=== PATIENT | female | born 1950 | race Caucasian/White ===

== ENCOUNTER 2019-12-18 14:18 | Outpatient (CLI) | payer BC, SELFPAY ==
--- NOTE | 2019-12-18 14:30 | XRR_ITS ---
PROCEDURE INFORMATION: Exam: XR Left Shoulder Exam date and time: 12/18/2019 2:31 PM Age: 69 years old Clinical indication: Pain; Shoulder; Left; Additional info: Pain in left shoulder TECHNIQUE: Imaging protocol: XR Left shoulder. Views: 2 or more views. COMPARISON: CR Shoulder 2+ views LEFT* [id number] 07/26/2018 1:13 PM FINDINGS: Bones/joints: Negative for acute bony abnormality Soft tissues: Normal. No interval changes are seen compared to prior examination XR/XR shoulder LT min 2V* [id number] IMPRESSION: No acute findings.
== END 2019-12-18 14:19 | disposition home or self-care (01) ==
LOC: RAD 14:24
PROVIDERS: Family Provider Family Medicine; PCP Family Medicine; Visit Provider Family Medicine
DX: M25.512 Pain in left shoulder (principal)
CPT/HCPCS: 73030

== ENCOUNTER 2020-01-09 10:56 | Outpatient (RCR) | payer BC, SELFPAY | END 2020-01-25 23:59 | disposition home or self-care (01) | LOC: SPT 10:56 | PROVIDERS: Family Provider Family Medicine; PCP Family Medicine; Referring Provider Family Medicine; Visit Provider Family Medicine | DX: M25.512 Pain in left shoulder (principal) | CPT/HCPCS: 97110; 97162 ==

== ENCOUNTER 2020-01-26 06:00 | Outpatient (RCR) | payer BC, SELFPAY | END 2020-02-25 23:59 | disposition home or self-care (01) | LOC: SPT 06:00 | PROVIDERS: Family Provider Family Medicine; PCP Family Medicine; Referring Provider Family Medicine; Visit Provider Family Medicine | DX: M25.512 Pain in left shoulder (principal) | CPT/HCPCS: 97110 ==

== ENCOUNTER 2021-04-07 10:54 | Outpatient (CLI) | payer BC, SELFPAY ==
--- NOTE | 2021-04-07 11:04 | MM_ITS ---
WS: [id number] BILATERAL SCREENING DIGITAL MAMMOGRAM WITH CAD HISTORY: SCREENING COMPARISON: 05/17/2018 and 01/08/2013 Bilateral CC and MLO views submitted. Computer aided detection analyzed. Breast composition: There are scattered areas of fibroglandular density. No suspicious masses, microc alcifications or architectural distortion. MM/[place] [id number] IMPRESSION: BI-RADS: 1-Negative FOLLOW UP: 1 Year Follow-up
== END 2021-04-07 10:55 | disposition home or self-care (01) ==
LOC: RADSHAW 10:59
PROVIDERS: PCP Family Medicine; Visit Provider Family Medicine
DX: Z12.31 Encounter for screening mammogram for malignant neoplasm of breast (principal)
CPT/HCPCS: 77067

== ENCOUNTER 2022-04-12 12:19 | Outpatient (CLI) | payer BC, SELFPAY ==
--- NOTE | 2022-04-12 12:25 | CT_ITS ---
WS: [id number] CT HEAD TECHNIQUE: Noncontrast CT of the head obtained from the skullbase to the vertex. CLINICAL INFORMATION: HEADACHE COMPARISON: CT 8 30,018 DLP: 1047.[address] scans at [facility] use at least one of these dose optimization techniques: automated e xposure control; mA and/or kV adjustment per patient size (includes targeted exams where dose is matc hed to clinical indication); or iterative reconstruction. FINDINGS: No evidence of intracranial hemorrhage or mass effect. Ventricular system and basal cisterns are avery nt. Mild small vessel changes with moderate parenchymal volume loss. No extra-axial fluid collections . No evidence of mass or mass effect. Intracranial vascular calcification. Paranasal sinuses and mastoid air cells are well aerated. .Normal visualized soft tissues. CT/CT head wo con* [id number] IMPRESSION: 1. No evidence of intracranial hemorrhage or mass effect. 2. Mild small vessel changes with moderate parenchymal volume loss. 3. No acute intracranial findings.
== END 2022-04-12 12:20 | disposition home or self-care (01) ==
PROVIDERS: PCP Family Medicine; Visit Provider Family Medicine
DX: R51.9 Headache, unspecified (principal)
CPT/HCPCS: 70450

== ENCOUNTER 2022-04-14 13:12 | Outpatient (CLI) | payer BC, SELFPAY ==
--- NOTE | 2022-04-14 13:49 | USCV_ITS ---
Ayaka Walker Age: 71 Gender: F : 1950 Exam Date: 04/14/2022 14:01 Ordering Phys: Annabel Fang MD Technologist: Exam [place] [facility] [place]: tia vs cva Risk Factors: Previous Vascular Surgery: Right Brachial BP: / Left Brachial BP: / Right Left Velocity (cm/s) Spectral Plaque Velocity (cm/s) Spectral Plaque Syst/Diast Broadening Syst/Diast Broadening 51.80/ 9.90 Prox CCA 53.00 / 10.30 73.90/ 18.70 Mid CCA 48.70 / 9.40 56.40/ 14.50 Hetro Distal CCA 54.70 / 14.50 Hetro 59.80/ 12.00 Prox ICA 82.80 / 19.70 68.40/ 15.40 Mid ICA 93.30 / 19.70 103.40/22.20 Distal ICA 88.10 / 21.00 94.00 ECA 120.90 1.40 ICA/CCA 1.71 Antegrade Vertebral Antegrade 70.90/ 13.70 cm/s 59.20/ 11.80 cm/s Tri Subclavian Tri 74.30 115.7 0 CONCLUSIONS Right ICA stenosis <50%. Mild atheromatous plaque right carotid bulb/ICA. Left ICA stenosis <50%. Mild atheromatous plaque left carotid bulb/ICA. Normal antegrade Doppler flow noted in the right vertebral artery. Normal antegrade Doppler flow noted in the left vertebral artery. Adam Bruno MD (Electronically Signed) Final Date: 14 Apr 2022 17:42 S
== END 2022-04-14 13:13 | disposition home or self-care (01) ==
PROVIDERS: PCP Family Medicine; Visit Provider Family Medicine
DX: I65.23 Occlusion and stenosis of bilateral carotid arteries (principal); R51.9 Headache, unspecified
CPT/HCPCS: 93880

== ENCOUNTER 2022-09-22 15:09 | Outpatient (CLI) | payer BC, SELFPAY ==
--- NOTE | 2022-09-22 | XR_ITS ---
WS: [id number] Exam: XR shoulder LT min 2V* [id number] Date/Time of Exam: 09/22/2022 3:15 PM Reason For Exam: LEFT SHOULDER PAIN No acute fracture or dislocation. Moderate degenerative change of the glenohumeral joint. The AC join t is intact. Normal soft tissues. XR/XR shoulder LT min 2V* [id number] IMPRESSION: 1. Moderate degenerative change of the glenohumeral joint. 2. No fracture or other significant finding.
== END 2022-09-22 15:10 | disposition home or self-care (01) ==
LOC: RAD 15:10
PROVIDERS: PCP Family Medicine; Visit Provider Family Medicine
DX: M25.512 Pain in left shoulder (principal); M19.012 Primary osteoarthritis, left shoulder
CPT/HCPCS: 73030

== ENCOUNTER 2022-10-19 08:29 | Outpatient (CLI) | payer BC, SELFPAY ==
--- NOTE | 2022-10-19 08:38 | NM_ITS ---
WS: [id number] NUCLEAR MEDICINE PARATHYROID STUDY INDICATION: Endocrine disorder TECHNIQUE: 19.2 mCi technetium 99m sestamibi with initial and 2 hour delayed imaging. Suprasternal ma rker and chin markers utilized. Anterior planar and oblique imaging. FINDINGS: Normal symmetric thyroid uptake on the initial imaging. Normal washout on the delayed imagi ng. No suspicious areas to suggest parathyroid adenoma. No other suspicious findings. NM/NM parathyroid [id number] IMPRESSION: 1. No evidence of parathyroid adenoma.
== END 2022-10-19 08:30 | disposition home or self-care (01) ==
LOC: RAD 08:30
PROVIDERS: PCP Family Medicine; Visit Provider Family Medicine
DX: E34.9 Endocrine disorder, unspecified (principal)
CPT/HCPCS: 78070; A9500

== ENCOUNTER 2022-11-03 14:44 | Outpatient (CLI) | payer BC, SELFPAY ==
--- NOTE | 2022-11-03 14:55 | XR_ITS ---
WS: [id number] DEXA (DUAL ENERGY X-RAY ABSORPTIOMETRY) Bone mineral density was performed using a [employer] machine. HISTORY: POST MENOPAUSAL COMPARISON: None available. Lumbar spine BMD (L1-L4): 1.060 g/cm2 T score: -1.0 Z score: 0.1 Total hip BMD: Left: 0.822 g/cm2. T score: -1.5 Z score: -0.4 Right: 0.862 g/cm2. T score: -1.2 Z score: -0.1 10 year probability of a major osteoporotic fracture is 10.6%. XR/XR DEXA axial skeleton* [id number] IMPRESSION: OSTEOPENIA based upon the WHO classification for females.
== END 2022-11-03 14:45 | disposition home or self-care (01) ==
PROVIDERS: PCP Family Medicine; Visit Provider Family Medicine
DX: Z78.0 Asymptomatic menopausal state (principal); M85.80 Other specified disorders of bone density and structure, unspecified site
CPT/HCPCS: 77080

== ENCOUNTER 2023-02-13 14:43 | Outpatient (CLI) | payer BC, SELFPAY ==
--- NOTE | 2023-02-13 14:53 | MM_ITS ---
WS: [id number] BILATERAL 3D TOMOSYNTHESIS DIGITAL SCREENING MAMMOGRAPHY WITH CAD CLINICAL INFORMATION: SCREENING HISTORY: Screening mammogram. LEFT breast tenderness COMPARISON: 2020 TECHNIQUE: Bilateral CC and MLO views. FINDINGS: Scattered fibroglandular densities bilaterally. No suspicious focal mass, asymmetry, calcifications, or architectural distortion. No evidence of malignancy. A few incidental punctate calcifications. Vas cular calcification. MM/[place] [id number] IMPRESSION: BI-RADS: 2-Benign FOLLOW UP: 1 Year Follow-up Recommend return to annual screening mammography.
== END 2023-02-13 14:44 | disposition home or self-care (01) ==
LOC: RAD 14:45
PROVIDERS: PCP Family Medicine; Visit Provider Family Medicine
DX: Z12.31 Encounter for screening mammogram for malignant neoplasm of breast (principal)
CPT/HCPCS: 77063; 77067

== ENCOUNTER → 2023-06-06 15:52 | Outpatient (BNVA) | payer BC, SELFPAY | PROVIDERS: PCP Family Medicine; Visit Provider Internal Medicine Cardiovascular Disease | DX: R07.9 Chest pain, unspecified (principal) | CPT/HCPCS: 93005 ==

== ENCOUNTER 2023-08-01 12:52 | Outpatient (CLI) | payer BC, SELFPAY ==
--- NOTE | 2023-08-01 13:12 | XRR_ITS ---
PROCEDURE INFORMATION: Exam: XR Lumbosacral Spine Exam date and time: 08/01/2023 1:32 PM Age: 73 years old Clinical indication: Injury or trauma; Fall; Blunt trauma (contusions or hematomas); Injury date: 2 weeks ago; Additional info: Dorsalgia TECHNIQUE: Imaging protocol: Radiologic exam of the lumbosacral spine. Views: 2 or 3 views. COMPARISON: No relevant prior studies available. FINDINGS: Bones/joints: Trace anterolisthesis of L5 on S1. Trace retrolisthesis of L3 on L4. Vertebral body height is maintained. No acute fracture. There is marked disc narrowing and endplate sclerosis L1-L2. There is [id number] lumbar facet spondylosis, greatest at L4-L5 and L5-S1. The visible portion of the sacrum is intact. Visible portions of the pelvis and hips are intact. No acute fracture. Visible portions of the ribs are intact. Soft tissues: Unremarkable. Gastrointestinal tract: There is gas and stool distention of the ascending colon. XR/XR lumbar spine 2-3V* [id number] IMPRESSION: 1. No acute fracture. 2. Lumbar disc and facet degeneration.
--- NOTE | 2023-08-01 13:12 | XRR_ITS ---
PROCEDURE INFORMATION: Exam: XR Pelvis Exam date and time: 08/01/2023 1:32 PM Age: 73 years old Clinical indication: Injury or trauma; Fall; Blunt trauma (contusions or hematomas); Bilateral; Pelvic region; Injury date: 2 weeks ago; Additional info: Back pain/fall from one level to another TECHNIQUE: Imaging protocol: Radiologic exam of the pelvis. Views: 1 or 2 view. COMPARISON: No relevant prior studies available. FINDINGS: Bones/joints: Femoroacetabular alignment is normal bilaterally. There is mild bilateral central joint space narrowing. The proximal femora are intact. The bony pelvis is intact. Sacrum and SI joints are unremarkable. Distal sacrum is partially obscured by overlying bowel gas. There is moderate degenerative disease in the lower lumbar spine. Soft tissues: Visible soft tissues are unremarkable. XR/XR pelvis 1-2V* [id number] IMPRESSION: No acute fracture.
== END 2023-08-01 12:53 | disposition home or self-care (01) ==
PROVIDERS: PCP Family Medicine; Visit Provider Family Medicine
DX: M54.9 Dorsalgia, unspecified (principal); W17.89XA Other fall from one level to another, initial encounter; M47.816 Spondylosis without myelopathy or radiculopathy, lumbar region
CPT/HCPCS: 72100; 72170

== ENCOUNTER 2023-09-18 08:51 | Day surgery (SDC) | payer BC, SELFPAY ==
[2023-09-18] VITALS (11 sets, daily range): BP systolic 109–124; BP diastolic 68–81; PULSE 60–73; RESP 9–20; TEMP 36.6–36.8; O2SAT 92–97; BMI 30.8
--- NOTE | 2023-09-18 09:33 | ANES.PREANE2 ---
Pre-Anesthetic Assessment Height/Weight: Height 1.6 m Weight 78.925 kg Temp Pulse Resp BP Pulse Ox O2 Del Method 97.9 F 60 16 109/72 94 Room Air 09/18/23 09:11 09/18/23 09:11 09/18/23 09:11 09/18/23 09:11 09/18/23 09:11 09/18/23 09:11 Operation Date: 09/18/23 13:40 Proposed Procedures p [id number] incision right flank subcutaneous mass R22.9(Not Applicable) - Natanael Silveira DO Familial anesthetic complications: none Was Beta Chip taken within 24 hours: N/A Was Clonidine taken within 24 hours: N/A Last intake: Intake Last Liquid Date 09/17/23 Last Liquid Time 17:00 Last Solid Date 09/17/23 Last Solid Time 20:30 CV/HEM Arrythmia Metabolic Hyperlipidemia and Morbid Obesity Neuropsych Anxiety Anesthetic Plan ASA status: 2 Anesthesia: Choice Medications/Allergies Home Medications Medication Instructions Recorded Confirmed Last Taken Type celecoxib 200 mg capsule 200 mg PO DAILY 12/05/20 09/15/23 09/17/23 History lovastatin 20 mg tablet 20 mg PO DAILY 12/05/20 09/15/23 09/17/23 History alprazolam 0.5 mg tablet 0.5 mg PO DAILY PRN Anxiety 06/06/23 09/18/23 09/17/23 History duloxetine 40 mg capsule,delayed 40 mg PO DAILY 06/06/23 09/15/23 09/17/23 History release Allergies Allergy/AdvReac Type Severity Reaction Status Date / Time No Known Allergies Allergy Verified 09/12/23 12:59 PFSH Anesthesia Surgical History (Updated 09/12/23 @ 13:26 by Natanael Silveira DO) Hx of arthroscopy of right knee x2 Hx of colonoscopy 2021 Hx of gastric bypass gastric sleeve 2016 Hx of hysterectomy Family History Mother Stroke Social History Smoking and tobacco/nicotine status: never used tobacco/nicotine Alcohol intake: never Substance/Drug Use: never Female Reproductive History Spontaneous abortions: No Data Anesthesia Cardiac Studies: Cardiac Event Monitor 06/06/23
[2023-09-18] MEDS: sodium chloride 0.9% 1,000 ML 30 ML IV (09:36)
--- NOTE | 2023-09-18 09:43 | W.PM.OPSUD ---
Surgery/Procedure H&P Update DATE OF PROCEDURE: September 18, 2023 DATE H&P PERFORMED: 09/12/23 H&P UPDATE INFORMATION: I have reviewed H&P completed within last 30 days, I have examined patient prior to procedure and No changes to prior documentation PLANNED PROCEDURE: Operation Date: 09/18/23 13:40 [place] [id number] incision right flank subcutaneous mass R22.9(Not Applicable) - Natanael Silveira, DO
[2023-09-18] MEDS: ceFAZolin 2,000 MG in sodium chloride 0.9% (plus) 50 ML 100 MG IV (10:34)
[2023-09-18] MEDS: lidocaine-epi 2% 20 mL INJ INJECTION (11:02)
--- NOTE | 2023-09-18 11:04 | PM.OP ---
Operative Report Date of procedure: September 18, 2023 Pre-op diagnosis: Subcutaneous mass right flank Post-op diagnosis: same Procedure done: Excision of subcutaneous mass right flank Implants: None Specimens removed/disposition: Subcutaneous mass right flank Surgeon: Natanael Silveira DO Anesthesia: General Estimated blood loss (mL): 5 Complications: None apparent Brief History: This very pleasant 73-year-old female with an enlarging and painful mass of her right flank. Excision was indicated. The risk and benefits were explained and documented. Procedure: The area was inspected prepped and draped in the usual sterile fashion. A timeout was performed. All present were in agreement. 2% lidocaine with epinephrine was used to anesthetize the area. A 10 blade scalpel was then used to make a 3.5 cm transverse incision on her right flank over the subcutaneous mass. Electrocautery was then used to dissect down through the fascia. A lobulated fatty mass was encountered. Alveolar tissue was lysed with electrocautery. The mass was removed in total. Mass measured 6 cm in greatest diameter. Hemostasis was noted. 3-0 Vicryl was used to approximate the dermis in a subcuticular interrupted fashion. Skin glue was used. Patient tolerated the procedure well.
--- NOTE | 2023-09-18 12:49 | ANE.PACU2 ---
Inpatient post-anesthesia follow up: Airway intact: Yes Vital signs: Temperature 97.9 F Pulse Rate 64 Respiratory Rate 14 Blood Pressure 112/72 Pulse Oximetry 94 Oxygen Delivery Me thod Room Air Oxygen Flow Rate Fraction of Inspir ed Oxygen Hydration adequate: Yes Nausea and vomiting: No Pain level: 2 Mental status: Baseline
--- NOTE | 2023-09-18 12:59 | SUR.PHASEII ---
incision site dry and intact.no bleeding.
== END 2023-09-18 12:45 | disposition home or self-care (01) ==
PROVIDERS: PCP Family Medicine; Visit Provider Surgery
PROC: (CPT 11406; principal; 2023-09-18 13:30)
DX: D17.1 Benign lipomatous neoplasm of skin and subcutaneous tissue of trunk (principal); E78.5 Hyperlipidemia, unspecified; E66.01 Morbid (severe) obesity due to excess calories; Z68.30 Body mass index [BMI] 30.0-30.9, adult
CPT/HCPCS: 11406; 12032; 88307; J0690; J1100; J2405; J2704; J3010; J3490; J7030

== ENCOUNTER 2024-06-26 07:23 | Day surgery (SDC) | payer BC, SELFPAY ==
[2024-06-26 07:43] VITALS: BMI 30.9
[2024-06-26 07:44] VITALS: BP 127/75; PULSE 69; RESP 18; TEMP 36.6; O2SAT 94
[2024-06-26] MEDS: sodium chloride 0.9% 1,000 ML 30 ML IV (07:51)
--- NOTE | 2024-06-26 08:01 | ANES.PREANE2 ---
Pre-Anesthetic Assessment Height/Weight: Height 1.6 m Weight 79.379 kg Temp Pulse Resp BP Pulse Ox O2 Del Method 97.8 F 69 18 127/75 94 Room Air 06/26/24 07:44 06/26/24 07:44 06/26/24 07:44 06/26/24 07:44 06/26/24 07:44 06/26/24 07:44 Preop Diagnosis: screening Operation Date: 06/26/24 08:30 Proposed Procedures p EGD Dilation W/ Balloon 80727, 95630, G0121, R13.10, Z12.11(Not Applicable) - Natanael Silveira DO s Colonoscopy(Not Applicable) - Natanael Silveira DO Familial anesthetic complications: none Was Beta Chip taken within 24 hours: N/A Was Clonidine taken within 24 hours: N/A Last intake: Intake Last Liquid Date 06/25/24 Last Liquid Time 22:30 Last Solid Date 06/24/24 Last Solid Time 18:00 Social No alcohol and No tobacco Exam alert, oriented x 3, clear to auscultation bilaterally and regular rate & rhythm Airway Submandibular: within normal limits Cervical ROM: within normal limits Mallampati: Class III Dentition: full History/ROS No significant history except as noted and No significant complaints Pulmonary None reported CV/HEM None reported None reported Hepatic None reported GI Hiatal Hernia difficulty swallowing Metabolic None reported Musc/skel None reported Neuropsych None reported Anesthetic Plan ASA status: 2 Anesthesia: MAC Risk of > 500 ml blood loss (7ml/kg in children): No Medications/Allergies Home Medications Medication Instructions Recorded Confirmed Last Taken Type celecoxib 200 mg capsule 200 mg PO DAILY 12/05/20 06/21/24 06/25/24 History lovastatin 20 mg tablet 20 mg PO DAILY 12/05/20 06/21/24 06/25/24 History alprazolam 0.5 mg tablet 0.5 mg PO DAILY PRN Anxiety 06/06/23 06/21/24 09/17/23 History duloxetine 40 mg capsule,delayed 40 mg PO DAILY 06/06/23 06/21/24 06/25/24 History release aspirin 81 mg tablet,delayed 81 mg PO DAILY 05/06/24 06/21/24 Unknown History release (Adult Aspirin Regimen) ondansetron 8 mg disintegrating 8 mg PO Q8H PRN nausea and 05/06/24 06/21/24 Unknown Rx tablet vomiting #20 tabs Allergies Allergy/AdvReac Type Severity Reaction Status Date / Time No Known Allergies Allergy Verified 06/21/24 10:46 Current Medications Generic Name Dose Route Start Last Admin Trade Name Evelia PRN Reason Stop Dose Admin Sodium Chloride 1,000 mls @ 30 mls/hr 06/26/24 07:45 06/26/24 07:51 Sodium Chloride 0.9% IV 06/27/24 07:44 30 mls/hr .Q24H KATELYN Administration PFSH Anesthesia Surgical History Hx of arthroscopy of right knee x2 Hx of hysterectomy Hx of gastric bypass gastric sleeve 2016 Hx of colonoscopy 2021 Family History Mother Stroke Social History Smoking and tobacco/nicotine status: never used tobacco/nicotine Alcohol intake: never Substance/Drug Use: never Female Reproductive History Spontaneous abortions: No Data Anesthesia Cardiac Studies: Cardiac Event Monitor 06/06/23
--- NOTE | 2024-06-26 08:41 | PM.HP ---
Providers/Chief Complaint Primary Care Provider: Annabel Fang MD Chief Complaint: R13.10, Z12.11 History of Present Illness Ayaka Walker is a 74 year old female Review of Systems General: Reports: 10 or more systems reviewed and unremarkable except in HPI and below Medications/Allergies Home Medications Medication Instructions Recorded Confirmed Last Taken Type celecoxib 200 mg capsule 200 mg PO DAILY 12/05/20 06/21/24 06/25/24 History lovastatin 20 mg tablet 20 mg PO DAILY 12/05/20 06/21/24 06/25/24 History alprazolam 0.5 mg tablet 0.5 mg PO DAILY PRN Anxiety 06/06/23 06/21/24 09/17/23 History duloxetine 40 mg capsule,delayed 40 mg PO DAILY 06/06/23 06/21/24 06/25/24 History release aspirin 81 mg tablet,delayed 81 mg PO DAILY 05/06/24 06/21/24 Unknown History release (Adult Aspirin Regimen) ondansetron 8 mg disintegrating 8 mg PO Q8H PRN nausea and 05/06/24 06/21/24 Unknown Rx tablet vomiting #20 tabs Allergies Allergy/AdvReac Type Severity Reaction Status Date / Time No Known Allergies Allergy Verified 06/21/24 10:46 PFSH Acute PFSH: Surgical History Hx of arthroscopy of right knee x2 Hx of hysterectomy Hx of gastric bypass gastric sleeve 2017 Hx of colonoscopy 2021 Family History Mother Stroke Social History Smoking and tobacco/nicotine status: never used tobacco/nicotine Alcohol intake: never Substance/Drug Use: never Female Reproductive History: Spontaneous abortions: No Vitals/I&O/Wt Last Vital Signs Temp 97.8 F 06/26/24 07:44 Pulse 69 06/26/24 07:44 Resp 18 06/26/24 07:44 BP 127/75 06/26/24 07:44 Pulse Ox 94 06/26/24 07:44 O2 Del Method Room Air 06/26/24 07:44 Weight last 48 hrs Weight 175 lb A&P Assessment and plan (1) Dysphagia: (2) Colon cancer screening: Plan EGD with possible balloon dilation Colonoscopy Attestations Medical Necessity Statement*: Home Coding Level of Care Code Acute Code for Chg Fwd Diagnoses Dysphagia R13.10 Colon cancer screening Z12.11
[2024-06-26] MEDS: EPINEPHrine 1 mg/mL INJ XX (09:01)
[2024-06-26 09:11] VITALS: BP 120/74; PULSE 67; RESP 12; TEMP 36.1; O2SAT 93
[2024-06-26 09:26] VITALS: BP 109/73; PULSE 68; RESP 18; O2SAT 95
--- NOTE | 2024-06-26 09:55 | ANE.PACU2 ---
Inpatient post-anesthesia follow up: Airway intact: Yes Vital signs: Temperature 97.0 F Pulse Rate 68 Respiratory Rate 18 Blood Pressure 109/73 Pulse Oximetry 95 Oxygen Delivery Me thod Room Air Oxygen Flow Rate 9 Fraction of Inspir ed Oxygen Hydration adequate: Yes Nausea and vomiting: No Pain level: 1 Mental status: Baseline
== END 2024-06-26 09:55 | disposition home or self-care (01) ==
PROVIDERS: PCP Family Medicine; Visit Provider Surgery
PROC: 0DJD8ZZ Inspection of Lower Intestinal Tract, Via Natural or Artificial Opening Endoscopic (ICD-10-PCS; CPT 45378; 2024-06-26 08:30)
DX: Z12.11 Encounter for screening for malignant neoplasm of colon (principal); R13.10 Dysphagia, unspecified; K29.50 Unspecified chronic gastritis without bleeding; D12.5 Benign neoplasm of sigmoid colon; Z98.84 Bariatric surgery status; K22.2 Esophageal obstruction; K44.9 Diaphragmatic hernia without obstruction or gangrene
CPT/HCPCS: 43239; 43249; 45385; 88305; J0171; J2704; J7030

== ENCOUNTER 2024-10-17 15:00 | Outpatient (CLI) | payer BC, SELFPAY ==
--- NOTE | 2024-10-17 15:05 | XR_ITS ---
WS: [id number] Exam: XR knee RT 4V [id number] Date/Time of Exam: 10/17/2024 3:08 PM Reason For Exam: PAIN IN R KNEE Comparison 12/17/2011. Tricompartmental degenerative change most severe involving the patellofemoral joint. No fracture. No significant joint effusion. Normal soft tissues. XR/XR knee RT 4V [id number] IMPRESSION: 1. Degenerative changes particularly involving the patellofemoral joint with kristine ne-on-bone articulation. This is most severe involving the lateral compartment. Kellgren-Ismael grade 2.
== END 2024-10-17 15:01 | disposition home or self-care (01) ==
LOC: RAD 15:01
PROVIDERS: PCP Family Medicine; Visit Provider Family Medicine
DX: M17.11 Unilateral primary osteoarthritis, right knee (principal)
CPT/HCPCS: 73564

== ENCOUNTER → 2024-11-06 09:18 | Outpatient (BNVA) | payer BC, SELFPAY | PROVIDERS: PCP Family Medicine; Visit Provider Specialist | DX: M25.561 Pain in right knee (principal); M17.11 Unilateral primary osteoarthritis, right knee; S80.01XA Contusion of right knee, initial encounter; X58.XXXA Exposure to other specified factors, initial encounter; M54.50 Low back pain, unspecified; M79.604 Pain in right leg; M25.461 Effusion, right knee; M25.569 Pain in unspecified knee | CPT/HCPCS: 73560; 73565; 80503; 87070; 87075; 87205; 89050 ==

== ENCOUNTER 2025-01-13 12:21 | Outpatient (CLI) | payer BC, SELFPAY ==
--- NOTE | 2025-01-13 12:30 | CT_ITS ---
WS: [id number] CT RIGHT KNEE, NONCONTRAST [facility] TECHNIQUE: Noncontrast CT of the RIGHT knee to include the RIGHT hip and ankle. CLINICAL INFORMATION: M17.11 - Unilateral primary osteoarthritis, right knee COMPARISON: None. DLP: 942.[address] scans at [facility] use at least one of these dose optimization techniques: automated exposure control; mA and/or kV adjustment per patient size (includes targeted exams where dose is matched to clinical indication); or iterative reconstruction. FINDINGS: Advanced tricompartment arthritis RIGHT knee worse in the medial joint compartment. Hypertrophic patella. Severe joint space narrowing at the patellofemoral articulation worse along the lateral patella facet. Hypertrophic changes along the joint line. Moderate suprapatellar effusion. Sigmoid diverticulosis. Moderate arthritis sacroiliac joints. CT/CT knee RT [facility] [id number] IMPRESSION: Images obtained for preoperative purposes.
== END 2025-01-13 12:22 | disposition home or self-care (01) ==
LOC: RAD 12:21
PROVIDERS: PCP Family Medicine; Visit Provider Specialist
DX: M17.11 Unilateral primary osteoarthritis, right knee (principal); R93.6 Abnormal findings on diagnostic imaging of limbs; K57.30 Diverticulosis of large intestine without perforation or abscess without bleeding; R93.89 Abnormal findings on diagnostic imaging of other specified body structures
CPT/HCPCS: 73700

== ENCOUNTER → 2025-01-29 10:00 | Outpatient (BNVA) | payer BC, SELFPAY | PROVIDERS: PCP Family Medicine; Visit Provider Family Medicine | DX: Z01.818 Encounter for other preprocedural examination (principal); R94.31 Abnormal electrocardiogram [ECG] [EKG] | CPT/HCPCS: 80053; 81003; 85025; 93005 ==

== ENCOUNTER 2025-02-06 06:43 | Day surgery (SDC) | payer BC, SELFPAY ==
[2025-02-06] VITALS (20 sets, daily range): BP systolic 88–145; BP diastolic 47–78; PULSE 58–87; RESP 14–20; TEMP 36.2–37.1; O2SAT 91–98; BMI 30.8; BMI 32.2
--- NOTE | 2025-02-06 07:06 | P.HPUD_ITS ---
Surgery/Procedure H&P Update DATE OF PROCEDURE: February 06, 2025 DATE H&P PERFORMED: 01/29/25 H&P UPDATE INFORMATION: I have reviewed H&P completed within last 30 days, I have examined patient prior to procedure, No changes to prior documentation and [place] [facility] [place] date indicated PLANNED PROCEDURE: Operation Date: 02/06/25 08:30 Proposed Procedures p Yevgeniy Robot Total Knee Arthroplasty(Right) - Syeda Gallardo MD Related Problem List Diagnoses (1) Primary osteoarthritis of right knee:
--- NOTE | 2025-02-06 08:02 | ANES.PREANE2 ---
Pre-Anesthetic Assessment Height/Weight: Height 1.6 m Weight 78.925 kg Temp Pulse Resp BP Pulse Ox O2 Del Method 98.7 F 58 L 16 145/78 98 Room Air 02/06/25 07:41 02/06/25 07:41 02/06/25 07:41 02/06/25 07:41 02/06/25 07:41 02/06/25 07:41 Operation Date: 02/06/25 08:30 Proposed Procedures p Yevgeniy Robot Total Knee Arthroplasty(Right) - Syeda Gallardo MD Familial anesthetic complications: Traumatizing experience with a spinal anesthetic in 1988 - was difficult to perform requiring multiple sticks, ultimately failed, but lasted until the following morning Was Beta Chip taken within 24 hours: N/A Was Clonidine taken within 24 hours: N/A Last intake: > 8 hrs Social No alcohol and No tobacco Exam alert, oriented x 3, clear to auscultation bilaterally and regular rate & rhythm Airway Mallampati: Class I Dentition: full CV/HEM Arrythmia GI Gastroesophageal Reflux Disease Metabolic Hyperlipidemia Anesthetic Plan ASA status: 2 Anesthesia: General Risk of > 500 ml blood loss (7ml/kg in children): No Other Pertinent Information Extensive discussion with patient and spouse about spinal vs general anesthesia, after discussion patient elected to proceed with general anesthestic Medications/Allergies Home Medications ?Medication ?Instructions ?Recorded ?Confirmed ?Last Taken ?Type lovastatin 20 mg tablet 20 mg PO DAILY 12/05/20 02/05/25 02/05/25 History alprazolam 0.5 mg tablet 0.5 mg PO DAILY PRN Anxiety 06/06/23 02/05/25 09/17/23 History duloxetine 40 mg capsule,delayed 40 mg PO DAILY 06/06/23 02/05/25 06/25/24 History release aspirin 81 mg tablet,delayed 81 mg PO DAILY 05/06/24 02/05/25 01/06/25 History release (Adult Aspirin Regimen) pantoprazole 40 mg tablet,delayed 40 mg PO ONCE 30 days #30 tabs 07/18/24 02/05/25 01/31/25 Rx release Allergies Allergy/AdvReac Type Severity Reaction Status Date / Time No Known Allergies Allergy Verified 02/06/25 07:10 [facility] Anesthesia Surgical History Hx of arthroscopy of right knee x2 Hx of hysterectomy Hx of gastric bypass gastric sleeve 2017 Hx of colonoscopy 2021 Family History Mother Stroke Social History Smoking and tobacco/nicotine status: never used tobacco/nicotine Alcohol intake: never Substance/Drug Use: never Female Reproductive History Spontaneous abortions: No Data Anesthesia Cardiac Studies: Cardiac Event Monitor 06/06/23
[2025-02-06] MEDS: acetaminophen 1,000 MG/100 ML PIGGYBACK 400 MG IV ×3 (08:07→23:40)
[2025-02-06] MEDS: gabapentin 300 mg Capsule PO (08:07)
[2025-02-06] MEDS: CELEcoxib 200 mg Capsule 400 MG PO (08:08)
[2025-02-06] MEDS: ceFAZolin 2,000 mg SDV 2000 MG IVP ×2 (08:43→17:37)
[2025-02-06] MEDS: tranexamic acid 1,000 mg/10mL SDV 1000 MG IV (09:20)
[2025-02-06] MEDS: ceFAZolin 1,000 mg SDV 2000 MG IRRIGATION (09:38)
[2025-02-06] MEDS: VANCOMYCIN ADD-Vantage 1,000 MG VIAL 1000 MG XX (09:40)
[2025-02-06] MEDS: BUPivacaine 0.5% INJ 10 mL 20 ML INJECTION (09:45)
[2025-02-06] MEDS: BUPivacaine liposome 13.3 mg/mL SDV 20 mL 266 MG INJECTION (09:45)
--- NOTE | 2025-02-06 11:58 | XRR_ITS ---
PROCEDURE INFORMATION: Exam: XR Right Knee Exam date and time: 02/06/2025 10:58 AM Age: 74 years old Clinical indication: Other: Post op RT knee; Prior surgery; Surgery date: Post-operative (0-2 days); Surgery type: Post op right knee; Additional info: S/P right tka in pacu TECHNIQUE: Imaging protocol: Radiologic exam of the right knee. Views: 3 views. COMPARISON: CT knee RT [facility] [id number] 01/13/2025 12:33 PM FINDINGS: Bones/joints: Total knee replacement. Anatomic alignment. Bone and metal are intact. Intra-articular and periarticular gas. Soft tissues: Normal. XR/XR knee RT 3V* [id number] IMPRESSION: Normal following replacement.
--- NOTE | 2025-02-06 12:07 | PM.OP ---
Operative Report Date of procedure: February 06, 2025 Pre-op diagnosis: Primary osteoarthritis right knee Post-op diagnosis: Primary osteoarthritis right knee Post-op findings: Severe degenerative osteoarthritic change right knee with osteophyte formation varus deformity Procedure done: Right total knee arthroplasty with Yevgeniy guidance Implants: The [place] total knee system with a size 3 triathlon beaded cruciate retaining femur right, a triathlon titanium tibial component size 2 beaded, a triathlon X3 tibial bearing CS insert size 2 X 9 mm and a beaded triathlon titanium asymmetric patella size 29 x 9 mm Specimens removed/disposition: Bone, disposed of Pathology: None Surgeon: Syeda Gallardo MD Word Processing Supervisor: Veronica Zamorano, nurse practitioner who services were required for retraction, exposure, closure, and completion of the surgical procedure Anesthesia: General (Intubated, ASA 2) Estimated blood loss (mL): 630 Tourniquet time (min): 0 (Not utilized) IV fluids (mL): 1,700 Urine output (mL): 100 Complications: None Findings: Severe degenerative osteoarthritis with large osteophytes and complete denudement of cartilage Condition: stable Disposition: PACU Brief History: This 74-year-old female presented to the clinic with right knee pain. The patient underwent nonsurgical intervention such as aspiration and injection of the knee. The patient also had anti-inflammatory medications. The patient was having increasing limitations in her activities of daily living and decreasing benefit from none operative interventions. For this reason, she wished to proceed with operative intervention. Risks and complications were discussed with her in the office. Questions were answered and consents were signed. Patient was seen in the preop holding area and given further opportunity for questions. Procedure: The patient was brought to the operating theater, and after undergoing adequate general anesthesia intubated, ASA 2, the right lower extremity was prepped with DuraPrep and draped in usual fashion following placement of a tourniquet high on the leg. The leg was then draped free. Tourniquet was placed on the leg but was not elevated throughout the surgical procedure. Following exposure of the site of surgery, a surgical pause was performed. At the time of the surgical pause, we confirmed the site and side of surgery. Additionally, we confirmed the appropriate and timely administration of preoperative antibiotics, Ancef 2 g. Tranexamic acid 1 g was given preoperatively and will be given again on the floor for 1 dose postoperatively. The availability of equipment was confirmed, and the patient's identity was verbalized as well. Following the surgical pause, an incision was made centering over the patella continuing proximally and distally as necessary to allow access to the knee joint. Dissection continued through skin and soft tissues using a scalpel. Hemostasis was obtained using electrocautery. The skin incision was followed by a median parapatellar arthrotomy. The leg was extended and the patella was able to be displaced laterally. Appropriate arrays and markers were placed in appropriate position for use of the Yevgeniy. Preoperative planning had been accomplished and was discussed in detail with the [facility] digital sales representative. Intraoperative mapping of the femur and tibia was accomplished after the arrays were placed. Once we had accomplished the Yevgeniy mapping, we began the appropriate resections for placement of the prosthesis. The plan was for a cruciate retaining right total knee arthroplasty. Once appropriate mapping had been accomplished retraction was established using manual retraction by the [facility] leg positioner and retractors. The knee was evaluated. There was eburnation particularly of the medial femoral condyle.? There were large osteophytes circumferentially about the trochlear groove as well as the patella and medial tibial plateau.? After balancing the knee within the Yevgeniy program, the appropriate bone resection was accomplished. Initial resection was accomplished on the tibia followed by appropriate resections on the femur. We had performed a medial release at the beginning of the procedure to allow for placement of the array. Proximal tibia was evaluated and it was felt that appropriate size for the tibia was a size 2, and appropriate femoral size was a size 3. A trial reduction was accomplished after osteophytes had been removed, the medial and lateral meniscus were excised, and bone cuts had been accomplished as above. We had removed the anterior cruciate ligament at the beginning of the case and preserved the posterior cruciate ligament. Trial reduction was accomplished with a size 3 femoral cruciate retaining component and a size 2 tibia with a CS tibial bearing insert which was 9 mm in thickness. Initial trial reduction demonstrated that the knee had excellent stability, full extension, and full flexion. The trial components were removed after the femur had been drilled. Prior to removal of the tibial tray which had been pinned in position with appropriate rotation as determined by the Yevgeniy plan, we broached the tibia. Subsequently, the 4 drill holes were made for the prosthetic component. All trial components had been removed, and the wound was irrigated. Plans were made for insertion of the prosthetic components. Prior to this, the patella was manually prepared. After resection of the articular surface freehand due to the thinness of the patella, it was measured and measured a 29 mm patella. We resected minimal patella, and patellar height was restored with the patellar component. Once again, the wound was irrigated. The Tritanium tibia was impacted into position.? The beaded femur was then impacted into position in a cementless fashion. The CS tibial insert was placed prior to placement of the femoral component. The patella was pressed into position with a patellar clamp.? Exparel was injected prior to placement of the components. The knee was then copiously irrigated with betadine and saline and suctioned dry. Attention was then directed to closure. Closure was accomplished with 0 Vicryl in the fascial tissues followed by a running #1 strata fix 1 from proximal to distal and 1 from distal to proximal.? This was followed by Surgiflo and vancomycin powder. Subcutaneous tissues were closed with 2-0 Monocryl strata fix, and the skin was closed in a running subcuticular fashion with 3-0 Monocryl strata fix.? A sterile dressing was then placed consisting of Dermabond Prineo, OpSite, sterile soft roll including over the foot, and an Jonathan wrap. The patient was returned the Recovery Room in a satisfactory condition. X-rays were obtained and reviewed there.? The patient will be discharged to the floor for postoperative rehabilitation and pain management. Related Problem List Diagnoses (1) Primary osteoarthritis of right knee:
[2025-02-06] MEDS: fentaNYL 50 mcg/mL INJ 2mL IVP (12:15)
--- NOTE | 2025-02-06 12:25 | ANE.PACU2 ---
Inpatient post-anesthesia follow up: Airway intact: Yes Vital signs: Temperature 97.4 F Pulse Rate 63 Respiratory Rate 14 Blood Pressure 97/75 Pulse Oximetry 97 Oxygen Delivery Me thod Room Air Oxygen Flow Rate 3 Fraction of Inspir ed Oxygen Hydration adequate: Yes Nausea and vomiting: No Pain level: 1 Mental status: Baseline
[2025-02-06] MEDS: oxyCODONE 5 mg IR Tab/Cap PO ×3 (13:02→22:13)
[2025-02-06] MEDS: ALPRAZolam 0.5 mg Tablet PO (13:02)
[2025-02-06] MEDS: sennosides-docusate Tablet 2 TAB PO (17:37)
[2025-02-06] MEDS: calcium carbonate 500 mg Chew Tablet 1000 MG PO (17:37)
[2025-02-06] MEDS: mupirocin oint 22 gm 1 APPLIC NASAL (17:37)
[2025-02-06] MEDS: tranexamic acid 1,000 MG/100 ML PREMIX 600 MG IV (17:37)
[2025-02-06] MEDS: iron polysaccharide complex 150 mg Capsule PO (17:37)
[2025-02-06] MEDS: chlorhexidine gluconate 0.12% Btl 473 mL 30 ML MUCOUS MEM ×2 (17:38→20:51)
[2025-02-06] MEDS: CELEcoxib 200 mg Capsule PO (20:50)
[2025-02-07] VITALS (8 sets, daily range): BP systolic 97–124; BP diastolic 60–74; PULSE 61–82; RESP 16–20; TEMP 36.5–37.1; O2SAT 94–97
[2025-02-07] MEDS: oxyCODONE 5 mg IR Tab/Cap PO ×3 (02:15→11:52)
[2025-02-07] MEDS: ceFAZolin 2,000 mg SDV 2000 MG IVP ×2 (02:16→08:04)
[2025-02-07] MEDS: atorvastatin 40 mg Tablet 20 MG PO (08:00)
[2025-02-07] MEDS: iron polysaccharide complex 150 mg Capsule PO (08:00)
[2025-02-07] MEDS: multivitamin therapeutic Tablet 1 TAB PO (08:00)
[2025-02-07] MEDS: duloxetine 20 mg Capsule 40 MG PO (08:00)
[2025-02-07] MEDS: sennosides-docusate Tablet 2 TAB PO (08:00)
[2025-02-07] MEDS: CELEcoxib 200 mg Capsule PO (08:00)
[2025-02-07] MEDS: calcium carbonate 500 mg Chew Tablet 1000 MG PO (08:00)
[2025-02-07] MEDS: cholecalciferol (vitamin D3) 1,000 unit Tablet 1000 UNIT PO (08:00)
[2025-02-07] MEDS: aspirin 325 mg EC Tablet PO (08:00)
[2025-02-07] MEDS: acetaminophen 1,000 MG/100 ML PIGGYBACK 400 MG IV (08:01)
[2025-02-07] MEDS: chlorhexidine gluconate 0.12% Btl 473 mL 30 ML MUCOUS MEM ×2 (08:05→12:26)
[2025-02-07] MEDS: mupirocin oint 22 gm 1 APPLIC NASAL (08:05)
--- NOTE | 2025-02-07 14:19 | PM.DCS ---
Discharge Providers Date of Admission: February 06, 2025 Date of Discharge: February 07, 2025 Attending Provider at Admission: Syeda Gallardo MD Attending Provider at Discharge: Syeda Gallardo MD Primary Care Provider: Annabel Fang MD Diagnoses at Discharge Discharge Diagnosis (1) Primary osteoarthritis of right knee: Status: Acute (2) Status post total right knee replacement not using cement: Status: Acute Permanent problem details: Date of procedure: February 06, 2025 Diagnosis: Primary osteoarthritis right knee Procedure done: Right total knee arthroplasty with Yevgeniy guidance Implants: The [place] total knee system with a size 3 triathlon beaded cruciate retaining femur right, a triathlon titanium tibial component size 2 beaded, a triathlon X3 tibial bearing CS insert size 2 X 9 mm and a beaded triathlon titanium asymmetric patella size 29 x 9 mm Reason for Visit Reason for Visit: M17.11 Brief History: This 74-year-old female presented to the clinic with right knee pain. The patient underwent nonsurgical intervention such as aspiration and injection of the knee. The patient also had anti-inflammatory medications. The patient was having increasing limitations in her activities of daily living and decreasing benefit from none operative interventions. For this reason, she wished to proceed with operative intervention. Risks and complications were discussed with her in the office. Questions were answered and consents were signed. Patient was seen in the preop holding area and given further opportunity for questions. Hospital Course Hospital Course This 74-year-old female presented with complaints of severe knee pain secondary to degenerative osteoarthritis of the knee. She underwent same-day surgery for right total knee arthroplasty. This was well-tolerated. The patient was admitted under observation status for postoperative rehabilitation and pain management. This was well-tolerated. On the first postoperative day, she had worked with physical therapy, and she was felt to be safe for discharge to home. Therefore, she will have arrangements made for home physical therapy. She will continue the exercises. She and her family are comfortable with her discharge. There is no evidence of DVT. There is no evidence of other complication. She is neurologically intact. She will follow-up in the office as scheduled. Physical Exam Const: COMMON NORMALS: no acute distress, average body habitus, patient oriented x3 and alert GENERAL APPEARANCE: cooperative and comfortable ORIENTATION/CONSCIOUSNESS: Yes awake HENMT: COMMON NORMALS: normocephalic and atraumatic HEAD & SCALP: normocephalic and atraumatic Eye: GENERAL EYE: appearance normal, both eyes and all related structures Chest: COMMONS NORMALS: normal inspection of the chest Resp: COMMON NORMALS: normal respiratory effort EFFORT & INSPECTION: Yes able to speak in complete sentences and Yes symmetric chest movement Extremity: RIGHT LOWER EXTREMITY: Yes knee joint (Large outer dressing is removed, under dressing is dry and intact) Right knee: Yes inspection (Mild ecchymosis), Yes palpation (Minimal tenderness), Yes ROM (Not evaluated) and Yes neurovascular exam (Intact distally with no evidence of DVT) Neuro: COMMON NORMALS: patient oriented x3 SENSORIUM/ORIENTATION: Yes alert Psych: COMMON NORMALS: mental status grossly normal APPEARANCE: Yes grossly normal ATTITUDE: Yes calm and Yes engaged ATTENTION/CONCENTRATION: Yes attention grossly intact Skin: COMMON NORMALS: no rashes or lesions noted GENERAL SKIN EXAM: no rashes or lesions noted Urinary Catheter Management: Alvarado: Cath Placed During This Visit: yes, but has since been removed by the nurse Reason for Continuing Indwelling Catheter: Decision to DC Catheter Urinary Catheter Date of Insertion: 02/06/25 Urinary Catheter Time of Insertion: 08:55 Date Urinary Catheter Removed: 02/07/25 Time Urinary Catheter Discontinued: 06:35 Discharge Data Studies Completed and Pending Completed Studies During Hospitalization Category Date Time Status XR knee RT 3V* [id number] Routine Exams 02/06/25 11:58 Completed Pending at discharge Category Date Time Status Basic Metabolic Panel AM LABS Lab 02/07/25 04:00 Uncollected Complete Blood Count w/Auto AM LABS Lab 02/07/25 04:00 Uncollected Complete Blood Count w/Auto AM LABS Lab 02/08/25 04:00 Uncollected Complete Blood Count w/Auto AM LABS Lab 02/09/25 04:00 Uncollected Radiology Impressions Knee X-Ray 02/06/25 11:58 IMPRESSION: Normal following replacement. Vitals Last Vital Signs Temp 97.7 F 02/07/25 11:29 Pulse 71 02/07/25 11:29 Resp 16 02/07/25 11:52 BP 100/65 02/07/25 11:29 Pulse Ox 94 02/07/25 11:29 O2 Del Method Room Air 02/07/25 11:29 O2 Flow Rate 2 02/07/25 04:00 FiO2 40 02/06/25 15:03 Discharge Plan Discharge Patient Disposition: Home Health Service Condition: Good Prescriptions: New acetaminophen 500 mg Tablet 1,000 mg PO Q8H 15 Days Qty: 90 0RF aspirin 325 mg Tablet,Delayed Release (Dr/Ec) 325 mg PO DAILY 30 Days Qty: 30 0RF celecoxib 200 mg Capsule 200 mg PO 1XD 30 Days Qty: 30 0RF oxycodone 5 mg Tablet 5 mg PO Q4H PRN (Reason: Moderate To Severe Pain) 7 Days Qty: 40 0RF Continued lovastatin 20 mg tablet 20 mg PO DAILY pantoprazole 40 mg tablet,delayed release (DR/EC) 40 mg PO ONCE 30 Days Qty: 30 11RF duloxetine 40 mg capsule,delayed release(DR/EC) 40 mg PO DAILY Held aspirin [Adult Aspirin Regimen] 81 mg tablet,delayed release (DR/EC) 81 mg PO DAILY Hold Instructions: Resume on 03/10/25. Following full strength aspirin Discontinued alprazolam 0.5 mg tablet 0.5 mg PO DAILY PRN (Reason: Anxiety) Discharge Orders: Discharge Order (Routine); Ordered 02/07/25 Ordered By: Syeda Gallardo Other Ambulatory Orders: Physical Therapy Eval and Treat Outpatient (Order) Timeframe: 3 Days Facility: [facility] - Location: Physical Therapy [place] Ordered By: Syeda Gallardo Referrals: Syeda Gallardo MD [Physician] - 02/17/25 1:15 pm Discharge Diet: Advance as tolerated, Usual diet and As Directed Discharge Activity: Increase activity as tolerated, Limit activity as instructed, Use walker/crutches as instructed and As per PT/OT instructions Patient Instructions: Acetaminophen (By mouth), Aspirin (By mouth), Celecoxib (By mouth), Oxycodone, Slow Release (By mouth) (Oxycontin, Xtampza ER, Oksikodon), Acute Wound Care (DC), Total Knee Replacement (DC), Post Anesthesia Care Activity Restrictions/Additional Instructions: You may weight-bear as tolerated. Maintain your dressing until you are seen in the office or it comes off on its own. You may be weightbearing as tolerated. Physical therapy will help with ambulation, gait training, strengthening, and range of motion. You may shower, but do not soak your knee in water. Your large outer dressing will be removed at the time of discharge from the hospital. Print Language: [place] Discharge Attestations Time Spent in Discharge Care*: greater than 30 min Specific Discharge Activities: educating patient, documenting/other paperwork and evaluating patient/reviewing data Quality Metrics Clinical Quality Measures [ No reported AMI, CVA or VTE this stay] Coding Level of Care Code Acute Code for Chg Fwd Diagnoses Primary osteoarthritis of right knee M17.11 Status post total right knee replacement not using cement Z96.651
[2025-02-07] MEDS: acetaminophen 500 mg Tablet 1000 MG PO (15:33)
== END 2025-02-07 16:15 | disposition home health service (06) ==
LOC: OR 06:44 → MEDSURG 12:11
PROVIDERS: PCP Family Medicine; Visit Provider Specialist
PROC: 8E0Y0CZ Robotic Assisted Procedure of Lower Extremity, Open Approach (ICD-10-PCS; CPT 27447; principal; 2025-02-06 08:30)
DX: M17.11 Unilateral primary osteoarthritis, right knee (principal); M25.761 Osteophyte, right knee; M21.161 Varus deformity, not elsewhere classified, right knee; K21.9 Gastro-esophageal reflux disease without esophagitis; E78.5 Hyperlipidemia, unspecified; Z79.899 Other long term (current) drug therapy; Z79.82 Long term (current) use of aspirin; Z90.710 Acquired absence of both cervix and uterus; Z98.84 Bariatric surgery status
CPT/HCPCS: 27447; 51702; 73562; 94660; 97110; 97116; 97161; 97165; A4216; C1776; C9290; J0131; J0690; J1100; J1171; J2250; J2405; J2704; J3010; J3370; J3475; J3490; P9045

== ENCOUNTER → 2025-02-17 13:15 | Outpatient (BNVA) | payer BC, SELFPAY | PROVIDERS: PCP Family Medicine; Visit Provider Specialist | DX: Z96.651 Presence of right artificial knee joint (principal); Z98.890 Other specified postprocedural states | CPT/HCPCS: 73560; 73565 ==

== ENCOUNTER → 2025-03-17 13:42 | Outpatient (BNVA) | payer BC, SELFPAY | PROVIDERS: PCP Family Medicine; Visit Provider Specialist | DX: Z98.890 Other specified postprocedural states (principal); Z96.651 Presence of right artificial knee joint | CPT/HCPCS: 73560; 73565 ==

== ENCOUNTER → 2025-04-09 13:54 | Outpatient (BNVA) | payer BC, SELFPAY | PROVIDERS: PCP Family Medicine; Visit Provider Specialist | DX: Z98.890 Other specified postprocedural states (principal); Z96.651 Presence of right artificial knee joint | CPT/HCPCS: 73560; 73565 ==

== ENCOUNTER 2025-04-27 05:00 | Outpatient (RCR) | payer BC, SELFPAY | END 2025-05-26 23:55 | disposition home or self-care (01) | LOC: SPT 05:00 | PROVIDERS: Visit Provider Specialist | DX: Z47.1 Aftercare following joint replacement surgery (principal); Z96.651 Presence of right artificial knee joint | CPT/HCPCS: 97110 ==

== ENCOUNTER → 2025-05-19 09:51 | Outpatient (BNVA) | payer BC, SELFPAY | PROVIDERS: Visit Provider Specialist | DX: M17.12 Unilateral primary osteoarthritis, left knee (principal) | CPT/HCPCS: 73560; 73565 ==

== ENCOUNTER 2025-05-27 15:25 | Outpatient (RCR) | payer BC, SELFPAY | END 2025-06-26 23:59 | disposition home or self-care (01) | LOC: SPT 15:25 | PROVIDERS: Visit Provider Specialist | DX: Z47.1 Aftercare following joint replacement surgery (principal); Z96.651 Presence of right artificial knee joint | CPT/HCPCS: 97110 ==

== ENCOUNTER 2025-06-27 05:00 | Outpatient (RCR) | payer BC, SELFPAY | END 2025-07-27 23:59 | disposition home or self-care (01) | LOC: SPT 05:00 | PROVIDERS: PCP Family Medicine; Visit Provider Specialist | DX: Z47.1 Aftercare following joint replacement surgery (principal); Z96.651 Presence of right artificial knee joint | CPT/HCPCS: 97110 ==

== ENCOUNTER 2025-07-21 13:49 | Outpatient (CLI) | payer BC, SELFPAY ==
--- NOTE | 2025-07-21 13:57 | XR_ITS ---
WS: [id number] SCREENING DEXA SCAN [employer] CLINICAL INFORMATION: ASYMPTOMATIC MENOPAUSAL STATE COMPARISON: 2021 FINDINGS: The L1-L4 bone mineral density measures 1.059 g/cm2. This corresponds to a T score score of -1.0 and Z score of 0.3. Left femoral neck bone mineral density measures 0.807 g/cm2. This corresponds to a T score of -1.6 and Z score of -0.3. Right femoral neck bone mineral density measures 0.799 g/cm2. This corresponds to a T score -1.7of and Z score of -0.3. Mean femoral neck bone mineral density measures 0.803 g/cm2. This corresponds to a T score of -1.6 and Z score of -0.3. XR/XR DEXA axial skeleton* [id number] IMPRESSION: Osteopenia lumbar spine. Osteopenia femoral necks. Patient's FRAX calculated 10 year probability for major osteoporotic fracture i s 12.8% and osteoporotic hip fracture is 3.0%. Bone mineral density lumbar spine decreased -0.1% Bone mineral density femoral necks decreased -4.6%
--- NOTE | 2025-07-21 13:57 | MM_ITS ---
WS: [id number] BILATERAL 3D TOMOSYNTHESIS DIGITAL SCREENING MAMMOGRAPHY WITH CAD CLINICAL INFORMATION: SCREENING HISTORY: Screening mammogram. No current complaints. COMPARISON: 2022 TECHNIQUE: Bilateral CC and MLO views. FINDINGS: The breasts are composed of heterogeneous fibroglandular density tissue, which can limit the detection of small underlying mass lesions. No suspicious mass, asymmetry, calcifications, or architectural distortion. No evidence of malignancy. Incidental calcifications LEFT breast. Vascular calcification. MM/MM [facility] tomosynthesis [id number] IMPRESSION: DENSITY: The breasts are heterogeneously dense, which may obscure small masses. BI-RADS: 2 - Benign FOLLOW UP: 1 Year Follow-up Recommend return to annual screening mammography.
== END 2025-07-21 13:50 | disposition home or self-care (01) ==
LOC: RAD 13:51
PROVIDERS: PCP Nurse Practitioner Family; Visit Provider Nurse Practitioner Family
DX: Z12.31 Encounter for screening mammogram for malignant neoplasm of breast (principal); Z13.820 Encounter for screening for osteoporosis; M85.852 Other specified disorders of bone density and structure, left thigh; M85.851 Other specified disorders of bone density and structure, right thigh; R92.333 Mammographic heterogeneous density, bilateral breasts; Z78.0 Asymptomatic menopausal state
CPT/HCPCS: 77063; 77067; 77080

== ENCOUNTER 2025-07-25 12:55 | Outpatient (CLI) | payer BC, SELFPAY ==
--- NOTE | 2025-07-25 13:04 | MR_ITS ---
WS: [id number] MRI LUMBAR SPINE NONCONTRAST HISTORY: LOW BACK PAIN/ANESTHESIA OF SKIN COMPARISON: None available. TECHNIQUE: Sagittal and axial multisequence imaging is submitted. Mild increase in the lumbar lordosis. L4 anterolisthesis by 2 mm. L5 is partially sacralized. Disc spaces are mildly narrowed and desiccated. Most significant narrowing at T12-L1 and L1-2. No fractures. No marrow edema in the lumbar vertebral bodies. Small amount of reactive marrow edema along the adjacent endplates of T10 and T11. Conus terminates normally at L1-2 disc level. T10-11: Annular disc bulging and osteophytic ridging with mild foraminal stenosis. L1-L2: Mild annular disc bulging with ligamentum flavum and facet arthritis encroaching upon the thecal sac. Mild bilateral foraminal stenosis. L2-L3: Mild disc bulging with mild ligamentum flavum and facet arthritis. Shallow LEFT foraminal disc protrusion. Mild bilateral foraminal stenosis. L3-L4: Diffuse annular disc bulging with moderate ligamentum flavum and facet arthritis. Fluid in the RIGHT facet joint. Mild bilateral subarticular recess and foraminal stenosis. L4-L5: Mild annular disc bulging. Ligamentum flavum and facet arthritis. No significant stenosis. L5-S1: Small rudimentary disc. No stenosis. Bilateral renal cysts. Mild atherosclerosis aorta. MR/MR lumbar spine wo con* [id number] IMPRESSION: 1. 4 lumbar type vertebral bodies with L5 being partially sacralized. 2. No lumbar spine fracture. 3. Mild bilateral foraminal stenosis at L1-2, L2-3 and L3-4. Stenosis due to c ombination of disc and facet disease. No high-grade central or foraminal stenos is. 4. Additional mild subarticular recess stenosis at L3-4.
== END 2025-07-25 12:56 | disposition home or self-care (01) ==
LOC: RAD 12:59
PROVIDERS: PCP Nurse Practitioner Family; Visit Provider Nurse Practitioner Family
DX: M48.061 Spinal stenosis, lumbar region without neurogenic claudication (principal); M47.816 Spondylosis without myelopathy or radiculopathy, lumbar region
CPT/HCPCS: 72148

== ENCOUNTER 2025-07-28 05:00 | Outpatient (RCR) | payer BC, SELFPAY | END 2025-08-26 23:59 | disposition home or self-care (01) | LOC: SPT 05:00 | PROVIDERS: Visit Provider Specialist | DX: Z47.1 Aftercare following joint replacement surgery (principal); Z96.651 Presence of right artificial knee joint | CPT/HCPCS: 97110 ==

== ENCOUNTER 2025-07-31 08:26 | Outpatient (RCR) | payer BC, SELFPAY | END 2025-08-26 23:59 | disposition home or self-care (01) | LOC: SPT 08:26 | PROVIDERS: Visit Provider Nurse Practitioner Family | DX: M47.816 Spondylosis without myelopathy or radiculopathy, lumbar region (principal) | CPT/HCPCS: 97110; 97161 ==

== ENCOUNTER → 2025-08-13 15:44 | Outpatient (BNVA) | payer BC, SELFPAY | PROVIDERS: Visit Provider Specialist | DX: Z96.651 Presence of right artificial knee joint (principal); M17.11 Unilateral primary osteoarthritis, right knee; Z47.89 Encounter for other orthopedic aftercare; Z01.89 Encounter for other specified special examinations | CPT/HCPCS: 73560; 73565 ==

== ENCOUNTER → 2025-08-18 10:41 | Outpatient (BNVA) | payer BC, SELFPAY | PROVIDERS: PCP Nurse Practitioner Family; Visit Provider Specialist | DX: Z01.818 Encounter for other preprocedural examination (principal); M17.12 Unilateral primary osteoarthritis, left knee; Z47.89 Encounter for other orthopedic aftercare | CPT/HCPCS: 36415; 73560; 73565; 80053; 85025 ==

== ENCOUNTER 2025-08-20 13:34 | Outpatient (CLI) | payer BC, SELFPAY ==
[2025-08-20 13:50] LABS: Glucose Urine UA Negative (Normal); Nitrate Urine Negative (Negative); Specific Gravity, Urine 1.018 (1.005-1.030)
[2025-08-20 13:54] LABS: Add Urine Microscopic? YES
[2025-08-20 14:09] LABS: UA Slide Review UA Slide Review Perf
== END 2025-08-20 13:35 | disposition home or self-care (01) ==
PROVIDERS: PCP Nurse Practitioner Family; Visit Provider Specialist
DX: Z01.818 Encounter for other preprocedural examination (principal)
CPT/HCPCS: 81001; 87086

== ENCOUNTER 2025-08-27 06:30 | Outpatient (RCR) | payer BC, SELFPAY | END 2025-09-09 12:22 | disposition home or self-care (01) | LOC: SPT 06:30 | PROVIDERS: PCP Nurse Practitioner Family; Visit Provider Nurse Practitioner Family | DX: M47.816 Spondylosis without myelopathy or radiculopathy, lumbar region (principal) | CPT/HCPCS: 97110 ==

== ENCOUNTER 2025-09-12 10:16 | Outpatient (CLI) | payer BC, SELFPAY ==
--- NOTE | 2025-09-12 10:15 | CT_ITS ---
WS: [id number] CT LEFT knee, noncontrast HISTORY: M17.12 - Unilateral primary osteoarthritis, left knee TECHNIQUE: Protocol for [facility] total knee replacement has been obtained. This includes axial imaging through the LEFT hip, LEFT knee and LEFT ankle. DLP: 877.24 mGy.cm COMPARISON: Radiograph 08/18/2025 LEFT hip: Mild joint space narrowing. No significant osteophytosis. No fracture or bone destruction. LEFT knee: Advanced tricompartment osteoarthritis. Joint spaces are narrowed with marginal osteophytes. Bone upon bone of the lateral patellofemoral articulation. No fracture. Small suprapatellar joint effusion. LEFT ankle: Negative. CT/CT knee LT [facility] [id number] IMPRESSION: CT imaging provided for [facility] robotic total knee replacement.
== END 2025-09-12 10:17 | disposition home or self-care (01) ==
LOC: RAD 10:19
PROVIDERS: PCP Nurse Practitioner Family; Visit Provider Specialist
DX: Z01.818 Encounter for other preprocedural examination (principal); M17.12 Unilateral primary osteoarthritis, left knee
CPT/HCPCS: 73700; 80053; 81000; 83036; 85025

== ENCOUNTER 2025-09-18 10:28 | Observation (INO) | payer BC, SELFPAY ==
[2025-09-18] VITALS (26 sets, daily range): BP systolic 54–135; BP diastolic 34–92; PULSE 57–94; RESP 16–19; TEMP 36.4–36.7; O2SAT 90–98; BMI 35.3
[2025-09-18] MEDS: acetaminophen 1,000 MG/100 ML PIGGYBACK 400 MG IV ×2 (06:34→20:13)
--- NOTE | 2025-09-18 07:05 | P.HPUD_ITS ---
Surgery/Procedure H&P Update DATE OF PROCEDURE: September 18, 2025 DATE H&P PERFORMED: 09/12/25 H&P UPDATE INFORMATION: I have reviewed H&P completed within last 30 days, I have examined patient prior to procedure, No changes to prior documentation, H&P is in [facility] EMR on date indicated and Risks and benefits of the procedure reviewed PREOP DIAGNOSIS: Left knee osteoarthritis PLANNED PROCEDURE: Operation Date: 09/18/25 07:45 Proposed Procedures p LEFT Yevgeniy Robot Total Knee Arthroplasty(Left) - Syeda Gallardo MD Related Problem List Diagnoses 1. Primary osteoarthritis of left knee:
--- NOTE | 2025-09-18 07:38 | ANES.PREANE2 ---
Pre-Anesthetic Assessment Height/Weight: Height 5 ft 2 in Temp Pulse Resp BP Pulse Ox O2 Del Method 97.9 F 57 L 18 121/78 95 Room Air 09/18/25 06:18 09/18/25 06:18 09/18/25 06:18 09/18/25 06:18 09/18/25 06:18 09/18/25 06:23 Preop Diagnosis: Left knee osteoarthritis Operation Date: 09/18/25 07:45 Proposed Procedures p LEFT Yevgeniy Robot Total Knee Arthroplasty(Left) - Syeda Gallardo MD Was Beta Chip taken within 24 hours: N/A Was Clonidine taken within 24 hours: N/A Last intake: Intake Last Liquid Date 09/17/25 Last Liquid Time 21:30 Last Solid Date 09/17/25 Last Solid Time 19:00 Social No alcohol and No tobacco Exam alert, oriented x 3, clear to auscultation bilaterally and regular rate & rhythm Airway Submandibular: within normal limits Cervical ROM: within normal limits Mallampati: Class II Dentition: full Anesthetic Plan ASA status: 2 Anesthesia: General Other: No prior issues with anesthesia NPO since yesterday evening Prior TKA under GA without issues Mild GERD, diet controlled with occasional Tums Patient states that her heart rate runs low at baseline, preop HR 57 Labs reviewed and acceptable for procedure today Plan for general anesthesia Medications/Allergies Home Medications ?Medication ?Instructions ?Recorded ?Confirmed ?Last Taken ?Type lovastatin 20 mg tablet 20 mg PO DAILY 12/05/20 09/17/25 09/17/25 History duloxetine 40 mg capsule,delayed 40 mg PO DAILY 06/06/23 09/17/25 09/17/25 History release aspirin 81 mg tablet,delayed 81 mg PO DAILY 05/06/24 09/17/25 08/27/25 History release (Adult Aspirin Regimen) Held on 02/07/25. Instructions: Resume on 03/10/25. Following full strength aspirin oxycodone 5 mg tablet 5 mg PO Q4H PRN Moderate To Severe 02/17/25 09/17/25 Unknown Rx Pain 7 days #40 tabs Allergies Allergy/AdvReac Type Severity Reaction Status Date / Time No Known Allergies Allergy Verified 09/17/25 12:05 Current Medications Generic Name Dose Route Start Last Admin Trade Name Freq PRN Reason Stop Dose Admin Sodium Chloride 1,000 mls @ 30 mls/hr 10/23/25 06:00 09/18/25 06:34 Sodium Chloride 0.9% IV 09/19/25 05:59 30 mls/hr .Q24H KATELYN Administration PFSH Anesthesia Surgical History Hx of arthroscopy of right knee x2 Hx of hysterectomy Hx of gastric bypass gastric sleeve 2016 Hx of colonoscopy 2021 Family History Mother Stroke Social History Smoking and tobacco/nicotine status: never used tobacco/nicotine Alcohol intake: never Substance/Drug Use: never Female Reproductive History Spontaneous abortions: No Data Anesthesia Cardiac Studies: Cardiac Event Monitor 06/06/23
[2025-09-18] MEDS: ceFAZolin 2,000 mg SDV 2000 MG IVP ×2 (07:52→17:46)
[2025-09-18] MEDS: tranexamic acid 1,000 mg/10mL SDV 1000 MG (08:59)
[2025-09-18] MEDS: BUPivacaine 0.5% INJ 30 mL XX (08:59)
[2025-09-18] MEDS: ceFAZolin 1,000 mg SDV 2000 MG IRRIGATION (09:01)
[2025-09-18] MEDS: BUPivacaine liposome 13.3 mg/mL SDV 20 mL 266 MG INFILTRATI (09:01)
--- NOTE | 2025-09-18 11:16 | P.OP_ITS ---
Operative Report Date of procedure: September 18, 2025 Pre-op diagnosis: Primary osteoarthritis of left knee with varus deformity Post-op diagnosis: Primary osteoarthritis of left knee with varus deformity Post-op findings: Large osteophytes and complete denudement of cartilage consistent with osteoarthritic change, varus deformity and flexion contracture. Procedure done: Left total knee arthroplasty with Yevgeniy guidance Implants: The Maranda total knee system with a size 3 triathlon beaded cruciate retaining femur left, a triathlon titanium tibial component size 2 beaded, a triathlon X3 tibial bearing CS insert size 2 X 9 mm and a beaded triathlon titanium asymmetric patella size 29 x 9 mm Specimens removed/disposition: Bone, disposed of Pathology: None Surgeon: Syeda Gallardo MD Child Development Professor: Veronica Zamorano, nurse practitioner who services were required for retraction, exposure, closure, and completion of the surgical procedure Anesthesia: General (Intubated, ASA 2) Estimated blood loss (mL): 460 Tourniquet time (min): 0 (Not utilized) IV fluids (mL): 1,700 Urine output (mL): 100 Complications: None Findings: Severe degenerative osteoarthritis with large osteophytes, flexion contracture, and denudement of cartilage Condition: stable Disposition: PACU (Then to floor for postoperative rehabilitation and pain management) Brief History: This 75-year-old woman previously underwent right total knee arthroplasty in January of this year. She has done well and return to the clinic with complaints of significant limitations in activities of daily living. She was requesting a right total knee arthroplasty. X-rays were consistent with severe degenerative osteoarthritis, varus deformity, and flexion contracture. The patient wished to proceed with the surgery and this was scheduled for her. In the office, consents were signed, and questions were answered. Additional opportunity was given in the preoperative holding area for further questions to be answered. Procedure: The patient was brought to the operating theater, and after undergoing adequate general anesthesia intubated, ASA 2, the left lower extremity was prepped with DuraPrep and draped in usual fashion following placement of a tourniquet high on the leg. The leg was then draped free. Tourniquet was placed on the leg but was not elevated throughout the surgical procedure. Following exposure of the site of surgery, a surgical pause was performed. At the time of the surgical pause, we confirmed the site and side of surgery. Additionally, we confirmed the appropriate and timely administration of preoperative antibiotics, Ancef 2 g. Tranexamic acid 1 g was given preoperatively and will be given again on the floor for 1 dose postoperatively. The availability of equipment was confirmed, and the patient's identity was verbalized as well. Following the surgical pause, an incision was made centering over the patella continuing proximally and distally as necessary to allow access to the knee joint. Dissection continued through skin and soft tissues using a scalpel. Hemostasis was obtained using electrocautery. The skin incision was followed by a median parapatellar arthrotomy. The leg was extended and the patella was able to be displaced laterally. Appropriate arrays and markers were placed in appropriate position for use of the [facility]. Preoperative planning had been accomplished and was discussed in detail with the [facility] surgical sales representative. Intraoperative mapping of the femur and tibia was accomplished after the arrays were placed. Once we had accomplished the [facility] mapping, we began the appropriate resections for placement of the prosthesis. The plan was for a cruciate retaining right total knee arthroplasty. Once appropriate mapping had been accomplished retraction was established using manual retraction by the [facility] leg positioner and retractors. The knee was evaluated. There was eburnation particularly of the medial femoral condyle.? There were large osteophytes circumferentially about the trochlear groove as well as the patella and medial tibial plateau.? After balancing the knee within the Yevgeniy program, the appropriate bone resection was accomplished. Initial resection was accomplished on the tibia followed by appropriate resections on the femur. We had performed a medial release at the beginning of the procedure to allow for placement of the array. Proximal tibia was evaluated and it was felt that appropriate size for the tibia was a size 2, and appropriate femoral size was a size 3. A trial reduction was accomplished after osteophytes had been removed, the medial and lateral meniscus were excised, and bone cuts had been accomplished as above. We had removed the anterior cruciate ligament at the beginning of the case and preserved the posterior cruciate ligament. Trial reduction was accomplished with a size 3 femoral cruciate retaining component and a size 2 tibia with a CS tibial bearing insert which was 9 mm in thickness. Initial trial reduction demonstrated that the knee had excellent stability, full extension, and full flexion. The trial components were removed after the femur had been drilled. Prior to removal of the tibial tray which had been pinned in position with appropriate rotation as determined by the Yevgeniy plan, we broached the tibia. Subsequently, the 4 drill holes were made for the prosthetic component. All trial components had been removed, and the wound was irrigated. Plans were made for insertion of the prosthetic components. Prior to this, the patella was manually prepared. After resection of the articular surface freehand due to the thinness of the patella, it was measured and measured a 29 mm patella. We resected minimal patella, and patellar height was restored with the patellar component. Once again, the wound was irrigated. The Tritanium tibia was impacted into position.? The beaded femur was then impacted into position in a cementless fashion. The CS tibial insert was placed prior to placement of the femoral component. The patella was pressed into position with a patellar clamp.? Exparel was injected prior to placement of the components. The knee was then copiously irrigated with betadine and saline and suctioned dry. Attention was then directed to closure. Closure was accomplished with 0 Vicryl in the fascial tissues followed by a running #1 strata fix 1 from proximal to distal and 1 from distal to proximal.? This was followed by Surgiflo and vancomycin powder. Subcutaneous tissues were closed with 2-0 Monocryl interrupted, and the skin was closed in a running subcuticular fashion with 3-0 Monocryl strata fix.? A sterile dressing was then placed consisting of Dermabond Prineo, OpSite, sterile soft roll including over the foot, and an Jonathan wrap. The patient was returned the Recovery Room in a satisfactory condition. X-rays were obtained and reviewed there.? The patient will be discharged to the floor for postoperative rehabilitation and pain management. Related Problem List Diagnoses 1. Primary osteoarthritis of left knee:
--- NOTE | 2025-09-18 11:16 | XR_ITS ---
WS: [id number] Left knee, AP and lateral views, 09/18/2025 Clinical Data: S/P Left TKA Comparison: Left knee, AP both knees, 08/18/2025 Findings: There is a total knee arthroplasty. The components are in satisfactory position. Postoperative air is in the subcutaneous tissue and joint space. XR/XR knee LT 1-2V 67790 Impression: Total left knee arthroplasty.
--- NOTE | 2025-09-18 11:19 | ANE.PACU2 ---
Inpatient post-anesthesia follow up: Airway intact: Yes Vital signs: Temperature 97.8 F Pulse Rate 66 Respiratory Rate 16 Blood Pressure 122/59 Pulse Oximetry 90 Oxygen Delivery Me thod Room Air Oxygen Flow Rate 6 Fraction of Inspir ed Oxygen Hydration adequate: Yes Nausea and vomiting: No Pain level: 1 Mental status: Baseline
[2025-09-18] MEDS: fentaNYL 50 mcg/mL INJ 2mL IVP (11:20)
--- NOTE | 2025-09-18 11:54 | PC.NURSE ---
This nurse took report from HARLEEN Devlin in PACU at 1153.
--- NOTE | 2025-09-18 12:30 | ANE.PACU2 ---
Inpatient post-anesthesia follow up: Airway intact: Yes Vital signs: Temperature 97.8 F Pulse Rate 66 Respiratory Rate 16 Blood Pressure 96/58 Pulse Oximetry 94 Oxygen Delivery Me thod Room Air Oxygen Flow Rate 6 Fraction of Inspir ed Oxygen Hydration adequate: Yes Nausea and vomiting: No Pain level: 1 Mental status: Baseline
[2025-09-18] MEDS: oxyCODONE 5 mg IR Tab/Cap PO ×2 (13:50→17:45)
[2025-09-18] MEDS: tranexamic acid 1,000 MG/100 ML PREMIX 600 MG IV (17:44)
[2025-09-18] MEDS: sennosides-docusate Tablet 2 TAB PO (17:45)
[2025-09-18] MEDS: chlorhexidine gluconate 0.12% Btl 473 mL 30 ML MUCOUS MEM ×2 (17:47→20:15)
[2025-09-18] MEDS: mupirocin oint 22 gm 1 APPLIC NASAL (17:47)
[2025-09-19] VITALS (8 sets, daily range): BP systolic 91–135; BP diastolic 55–95; PULSE 69–89; RESP 16–18; TEMP 36.4–36.7; O2SAT 95–98
[2025-09-19] MEDS: ceFAZolin 2,000 mg SDV 2000 MG IVP ×2 (01:40→08:19)
[2025-09-19] MEDS: acetaminophen 1,000 MG/100 ML PIGGYBACK 400 MG IV ×2 (03:04→11:45)
[2025-09-19] MEDS: oxyCODONE 5 mg IR Tab/Cap PO ×3 (05:15→15:39)
[2025-09-19] MEDS: ATORVASTATIN 10 MG TABLET PO (05:17)
[2025-09-19] MEDS: chlorhexidine gluconate 0.12% Btl 473 mL 30 ML MUCOUS MEM ×2 (05:22→11:45)
[2025-09-19] MEDS: sennosides-docusate Tablet 2 TAB PO (05:22)
[2025-09-19] MEDS: mupirocin oint 22 gm 1 APPLIC NASAL (05:27)
[2025-09-19 05:52] LABS: Hematocrit 33.2 % (36-47); Hemoglobin 10.60 g/dL (11.27-16.99); Mean Corpuscular HGB Conc 31.9 g/dL (30-55); Mean Corpuscular Hemoglobin 28.9 pg (27-33); Mean Corpuscular Volume 90.5 fl (85-98); Nucleated Red Blood Cells % 0 %; Platelet Count 304 10^3/cmm (157-399); Red Blood Count 3.67 10^6/uL (3.85-5.65); White Blood Count 12.40 10^3/uL (3.29-11.43)
[2025-09-19 06:11] LABS: Anion Gap 14.3 (5-19); Blood Urea Nitrogen 12 mg/dL (8-23); Calcium 8.7 mg/dL (8.5-10.5); Carbon Dioxide 24 mmol/L (22-29); Chloride 101 mmol/L (98-107); Creatinine Clr Calc Pharmacy 64.3788; Glucose 129 mg/dL (65-115); Osmolality Calculated 281 mOsm/kg (285-295); Potassium 4.3 mmol/L (3.5-5.1); Sodium 135 mmol/L (136-145)
--- NOTE | 2025-09-19 14:48 | P.DS_ITS ---
Documented by User: [email or web address] Wheeler-BC 09/19/25 15:14 Discharge Providers Date of Admission: 09/18/25 10:28 Date of Discharge: September 19, 2025 Attending Provider at Admission: Syeda Gallardo MD Attending Provider at Discharge: Syeda Gallardo MD Primary Care Provider: KENN Santiago Diagnoses at Discharge Discharge Diagnosis 1. Status post total left knee replacement: 2. Primary osteoarthritis of left knee: Reason for Visit Reason for Visit: M17.12 Brief History: Ayaka is a 75-year-old woman previously underwent right total knee arthroplasty in January of this year. She has done well and return to the clinic with complaints of significant limitations in activities of daily living. She was requesting a right total knee arthroplasty. X-rays were consistent with severe degenerative osteoarthritis, varus deformity, and flexion contracture. The patient wished to proceed with the surgery and this was scheduled for her. In the office, consents were signed, and questions were answered. Patient was taken for successful left total knee arthroplasty with Yevgeniy guidance on September 18, 2025. She is now postoperative day 1. Hospital Course Hospital Course Ayaka is now postoperative day 1 after left total knee arthroplasty with Yevgeniy guidance. She has been up and working with physical therapy and is now resting comfortably in bed. Overnight patient had episodes of hypotension, which limited the use of postoperative narcotics, for which she has had increased postoperative pain overnight. This morning she was able to take oral oxycodone, for which she tolerated well however, her blood pressure did respond to this with lower blood pressure. At this time, she is feeling well and having no symptoms of hypotension or acute postoperative complication. Postop labs are stable. Her pain is controlled with oral medications. Her pressure has returned to her baseline at this time. We will plan to discharge her with [place] 10/325 mg rather than her usual oxycodone, as the patient states that she is very sensitive to oxycodone. She was encouraged to monitor her blood pressure at home and follow-up with her PCP at discharge. Despite episodic hypotension, she has worked well with physical therapy services and ambulates independently with a walker. She is felt safe for discharge by the therapist at this time. With the evaluation of her left knee, her postoperative dressings are clean, dry and intact. She has no significant swelling at this point. She will continue to perform her home exercises and work with home therapy services. At this time we will discharge her home, with home nursing/therapy services. Patient is in agreement with this and will follow-up in the clinic in 2 weeks postoperatively. Physical Exam Const: COMMON NORMALS: no acute distress, average body habitus, patient oriented x3, no limitations, alert and well nourished GENERAL APPEARANCE: cooperative; not anxious and not combative ORIENTATION/CONSCIOUSNESS: Yes awake, Yes oriented to person, Yes oriented to place and Yes oriented to time HENMT: COMMON NORMALS: normocephalic and atraumatic HEAD & SCALP: normocephalic and atraumatic Resp: COMMON NORMALS: normal respiratory effort Cardio: OTHER: Denies cough, shortness of breath, chest pain or pressure. Extremity: LEFT LOWER EXTREMITY: Yes knee joint (Bulky, outer postoperative dressing removed for exam) Left knee: Yes inspection (OpSite dressing clean, dry and intact. Minimal swelling. Noted bruising.), Yes palpation (TTP anterior knee and distal quad. ), Yes ROM (AROM ext: lacking 5. Able to straight leg raise. ) and Yes neurovascular exam (Sensation intact to light touch. Rapid cap refill.) and Yes lower leg Left lower leg: Yes special tests (No calf pain, swelling or erythema.) Left lower leg special tests: Timi's sign: Negative Neuro: COMMON NORMALS: patient oriented x3 SENSORIUM/ORIENTATION: Yes candida rt, Yes oriented to person, Yes oriented to place and Yes oriented to time Psych: ATTITUDE: Yes engaged Skin: COMMON NORMALS: no rashes or lesions noted, turgor normal and no jaundice GENERAL SKIN EXAM: no rashes or lesions noted and turgor normal Urinary Catheter Management: Alvarado: Cath Placed During This Visit: yes, but has since been removed by the nurse Reason for Continuing Indwelling Catheter: Decision to DC Catheter Urinary Catheter Date of Insertion: 09/18/25 Urinary Catheter Time of Insertion: 08:30 Date Urinary Catheter Removed: 09/19/25 Time Urinary Catheter Discontinued: 07:08 Discharge Data Studies Completed and Pending Completed Studies During Hospitalization Category Date Time Status XR knee LT 1-2V 48870 Urgent Exams 09/18/25 11:16 Completed Radiology Impressions Knee X-Ray 09/18/25 11:16 Impression: Total left knee arthroplasty. Laboratory Results WBC 12.40 10^3/uL (3.29-11.43) H 09/19/25 05:16 RBC 3.67 10^6/uL (3.85-5.65) L 09/19/25 05:16 Hgb 10.60 g/dL (11.27-16.99) L 09/19/25 05:16 Hct 33.2 % (36-47) L 09/19/25 05:16 MCV 90.5 fl (85-98) 09/19/25 05:16 MCH 28.9 pg (27-33) 09/19/25 05:16 MCHC 31.9 g/dL (30-55) 09/19/25 05:16 RDW 14.2 % (12.1-15.1) 09/19/25 05:16 Plt Count 304 10^3/cmm (157-399) 09/19/25 05:16 MPV 9.7 fL (7.4-10.4) 09/19/25 05:16 Neut % (Auto) 75.2 % 09/19/25 05:16 Lymph % (Auto) 10.9 % 09/19/25 05:16 Austin % (Auto) 13.3 % 09/19/25 05:16 Eos % (Auto) 0.0 % 09/19/25 05:16 Baso % (Auto) 0.1 % 09/19/25 05:16 Neut # (Auto) 9.33 10^3/uL (1.8-7.7) H 09/19/25 05:16 Lymph # (Auto) 1.4 10^3/uL (0.8-4.8) 09/19/25 05:16 Austin # (Auto) 1.7 10^3/uL (0.2-0.9) H 09/19/25 05:16 Eos # (Auto) 0.0 10^3/uL (0.0-0.8) 09/19/25 05:16 Baso # (Auto) 0.0 10^3/uL (0.0-0.1) 09/19/25 05:16 Nucleated RBC % (auto) 0 % 09/19/25 05:16 Nucleated RBCs # 0.0 /100WBC 09/19/25 05:16 Sodium 135 mmol/L (136-145) L 09/19/25 05:16 Potassium 4.3 mmol/L (3.5-5.1) 09/19/25 05:16 Chloride 101 mmol/L (98-107) 09/19/25 05:16 Carbon Dioxide 24 mmol/L (22-29) 09/19/25 05:16 Anion Gap 14.3 (5-19) 09/19/25 05:16 BUN 12 mg/dL (8-23) 09/19/25 05:16 Creatinine 0.6 mg/dL (0.5-0.9) 09/19/25 05:16 GFR Calculation Not Reportable 09/19/25 05:16 Glucose 129 mg/dL (65-115) H 09/19/25 05:16 Calculated Osmolality 281 mOsm/kg (285-295) L 09/19/25 05:16 Calcium 8.7 mg/dL (8.5-10.5) 09/19/25 05:16 Vitals Last Vital Signs Temp 97.5 F L 09/19/25 11:33 Pulse 89 09/19/25 11:33 Resp 17 09/19/25 11:33 BP 113/61 09/19/25 11:33 Pulse Ox 97 09/19/25 11:33 O2 Del Method Room Air 09/19/25 11:33 O2 Flow Rate 6 09/18/25 11:24 Discharge Plan Discharge Patient Disposition: Home Health Service Condition: Stable Prescriptions: New celecoxib 200 mg Capsule 200 mg PO Q12H 30 Days Qty: 60 0RF acetaminophen 500 mg Tablet 1,000 mg PO BID 14 Days Qty: 56 0RF aspirin 325 mg Tablet,Delayed Release (Dr/Ec) 325 mg PO DAILY Qty: 30 0RF hydrocodone-acetaminophen 10-325 mg tablet 1 tab PO Q8H PRN (Reason: pain) Qty: 21 0RF Continued lovastatin 20 mg tablet 20 mg PO DAILY duloxetine 40 mg capsule,delayed release(DR/EC) 40 mg PO DAILY Held aspirin [Adult Aspirin Regimen] 81 mg tablet,delayed release (DR/EC) 81 mg PO DAILY Hold Instructions: Resume on 03/10/25. Following full strength aspirin Discontinued oxycodone 5 mg tablet 5 mg PO Q4H PRN (Reason: Moderate To Severe Pain) 7 Days Qty: 40 0RF Discharge Order = DC NOW: Discharge Order (Routine); Ordered 09/19/25 Ordered By: Veronica Zamorano Referrals: Syeda Gallardo MD [Physician, Orthopedics] - 10/06/25 2:45 am Discharge Diet: Advance as tolerated and Usual diet Discharge Activity: Increase activity as tolerated, Limit activity as instructed, Use walker/crutches as instructed and As per PT/OT instructions Patient Instructions: Hydrocodone/Acetaminophen (By mouth), Celecoxib (By mouth), Acute Wound Care (DC), Total Knee Replacement (DC), Joint Replacement Stoplight, Opioid Safety, Post Anesthesia Care, Patient Portal & Gwen Instructions Activity Restrictions/Additional Instructions: Elevate left lower extremity above the level of your heart. Ice to left knee. You may weight-bear as tolerated. Gait training, strengthening, and range of motion per physical therapy. Monitor your blood pressure at home. May take OTC Tylenol with NORCO, but do not exceed 3,000mg every 24 hours. You may shower and get your knee wet, but do not submerge the knee in water. If the dressing begins to lift up to come off, please remove it and contact the office for further care instruction. Follow-up as scheduled. Discharge Attestations Time Spent in Discharge Care*: greater than 30 min Quality Metrics Clinical Quality Measures [ No reported AMI, CVA or VTE this stay] Coding Level of Care Code Acute Code for Chg Fwd Diagnoses Status post total left knee replacement Z96.652 Primary osteoarthritis of left knee M17.12 Documented by User: Syeda Gallardo MD 09/19/25 16:39 Diagnoses at Discharge Discharge Diagnosis 1. Status post total left knee replacement: 2. Primary osteoarthritis of left knee: Reason for Visit Reason for Visit: M17.12 Hospital Course Hospital Course Ayaka is now postoperative day 1 after left total knee arthroplasty with Yevgeniy guidance. She has been up and working with physical therapy and is now resting comfortably in bed. Overnight patient had episodes of hypotension, which limited the use of postoperative narcotics, for which she has had increased postoperative pain overnight. This morning she was able to take oral oxycodone, for which she tolerated well however, her blood pressure did respond to this with lower blood pressure. At this time, she is feeling well and having no symptoms of hypotension or acute postoperative complication. Postop labs are stable. Her pain is controlled with oral medications. Her pressure has returned to her baseline at this time. We will plan to discharge her with [place] 10/325 mg rather than her usual oxycodone, as the patient states that she is very sensitive to oxycodone. She was encouraged to monitor her blood pressure at home and follow-up with her PCP at discharge. Despite episodic hypotension, she has worked well with physical therapy services and ambulates independently with a walker. She is felt safe for discharge by the therapist at this time. With the evaluation of her left knee, her postoperative dressings are clean, dry and intact. She has no significant swelling at this point. She will continue to perform her home exercises and work with home therapy services. At this time we will discharge her home, with home nursing/therapy services. Patient is in agreement with this and will follow-up in the clinic in 2 weeks postoperatively. Physical Exam Urinary Catheter Management: Alvarado: Cath Placed During This Visit: yes, but has since been removed by the nurse Discharge Plan Discharge Patient Disposition: Home Health Service Condition: Stable Prescriptions: New celecoxib 200 mg Capsule 200 mg PO Q12H 30 Days Qty: 60 0RF acetaminophen 500 mg Tablet 1,000 mg PO BID 14 Days Qty: 56 0RF aspirin 325 mg Tablet,Delayed Release (Dr/Ec) 325 mg PO DAILY Qty: 30 0RF hydrocodone-acetaminophen 10-325 mg tablet 1 tab PO Q8H PRN (Reason: pain) Qty: 21 0RF Continued lovastatin 20 mg tablet 20 mg PO DAILY duloxetine 40 mg capsule,delayed release(DR/EC) 40 mg PO DAILY Held aspirin [Adult Aspirin Regimen] 81 mg tablet,delayed release (DR/EC) 81 mg PO DAILY Hold Instructions: Resume on 03/10/25. Following full strength aspirin Discontinued oxycodone 5 mg tablet 5 mg PO Q4H PRN (Reason: Moderate To Severe Pain) 7 Days Qty: 40 0RF Discharge Order = DC NOW: Discharge Order (Routine); Ordered 09/19/25 Ordered By: Veronica Zamorano Referrals: Syeda Gallardo MD [Physician, Orthopedics] - 10/06/25 2:45 am Discharge Diet: Advance as tolerated and Usual diet Discharge Activity: Increase activity as tolerated, Limit activity as instructed, Use walker/crutches as instructed and As per PT/OT instructions Patient Instructions: Hydrocodone/Acetaminophen (By mouth), Celecoxib (By mouth), Acute Wound Care (DC), Total Knee Replacement (DC), Joint Replacement Stoplight, Opioid Safety, Post Anesthesia Care, Patient Portal & Gwen Instructions Activity Restrictions/Additional Instructions: Elevate left lower extremity above the level of your heart. Ice to left knee. You may weight-bear as tolerated. Gait training, strengthening, and range of motion per physical therapy. Monitor your blood pressure at home. May take OTC Tylenol with NORCO, but do not exceed 3,000mg every 24 hours. You may shower and get your knee wet, but do not submerge the knee in water. If the dressing begins to lift up to come off, please remove it and contact the office for further care instruction. Follow-up as scheduled. Coding Level of Care Code Acute Code for Chg Fwd Diagnoses Status post total left knee replacement Z96.652 Primary osteoarthritis of left knee M17.12
== END 2025-09-19 16:03 | disposition home health service (06) ==
LOC: MEDSURG 10:28
PROVIDERS: Admitting Provider Specialist; PCP Nurse Practitioner Family; Visit Provider Specialist
PROC: 8E0Y0CZ Robotic Assisted Procedure of Lower Extremity, Open Approach (ICD-10-PCS; CPT 27447; principal; 2025-09-18 07:45)
DX: M17.12 Unilateral primary osteoarthritis, left knee (principal); M21.162 Varus deformity, not elsewhere classified, left knee; Z79.82 Long term (current) use of aspirin; K21.9 Gastro-esophageal reflux disease without esophagitis; Z79.891 Long term (current) use of opiate analgesic
CPT/HCPCS: 27447; 20985; 36415; 51702; 73560; 80048; 85025; 97110; 97116; 97161; 97165; A4216; A4649; C1776; G0378; J0131; J0666; J0690; J1171; J2250; J2704; J3010; J3373; J3490; J7030; J9999

== ENCOUNTER 2025-09-27 05:00 | Outpatient (RCR) | payer BC, SELFPAY | END 2025-10-26 23:59 | disposition home or self-care (01) | LOC: SPT 05:00 | PROVIDERS: Visit Provider Specialist | DX: Z47.1 Aftercare following joint replacement surgery (principal); Z96.652 Presence of left artificial knee joint | CPT/HCPCS: 97110; 97161 ==

== ENCOUNTER → 2025-10-06 14:28 | Outpatient (BNVA) | payer BC, SELFPAY | PROVIDERS: PCP Nurse Practitioner Family; Visit Provider Specialist | DX: Z98.890 Other specified postprocedural states (principal); Z96.652 Presence of left artificial knee joint | CPT/HCPCS: 73560; 73565 ==

== ENCOUNTER 2025-10-27 05:00 | Outpatient (RCR) | payer BC, SELFPAY | END 2025-11-26 23:59 | disposition home or self-care (01) | LOC: SPT 05:00 | PROVIDERS: PCP Family Medicine; Visit Provider Specialist | DX: Z47.1 Aftercare following joint replacement surgery (principal); Z96.652 Presence of left artificial knee joint | CPT/HCPCS: 97110 ==

== ENCOUNTER → 2025-11-12 10:49 | Outpatient (BNVA) | payer BC, SELFPAY | PROVIDERS: PCP Family Medicine; Visit Provider Specialist | DX: Z98.890 Other specified postprocedural states (principal); Z96.652 Presence of left artificial knee joint | CPT/HCPCS: 73560; 73565 ==